=== PATIENT | female | born 1985 | race Caucasian/White ===

== ENCOUNTER 2022-07-23 23:17 | Emergency (ER) | payer OTHER ==
[~2022-07-23] VITALS: Ht 172.7 cm; Wt 117.9 kg
[2022-07-23] MEDS ORDERED: KETOROLAC TROMETHAMINE 60 MG INJ IM ONE (23:59)
[2022-07-24] MEDS ORDERED: KETOROLAC TROMETHAMINE 60 MG INJ IM ONE
--- NOTE | 2022-07-24 02:38 | NUR ---
Pt able to ambulate to restroom
[2022-07-24 02:59] LABS: *BILIRUBIN,URIN NEGATIVE (NEGATIVE); *BLOOD, URINE NEGATIVE (NEGATIVE); *CLARITY,URINE CLEAR (CLEAR); *COLOR,URINE YELLOW (YELLOW); *KETONES,URINE 1+ (NEGATIVE); *UROBILINOGEN,URINE 0.2 E.U./dl (NORMAL); LEUKOCYTE ESTERASE ,URINE NEGATIVE (NEGATIVE); NITRITE, URINE NEGATIVE (NEGATIVE); PH,URINE 5.5 (5.0-8.0); UGLUCOSE NEGATIVE (NEGATIVE)
[2022-07-24] MEDS ORDERED: ACETAMINOPHEN 325 MG TABLET ONE (03:09)
[2022-07-24 03:13] LABS: *AMPHETAMINE, URINE POSITIVE (NEGATIVE); *CANNABINOID, URINE NEGATIVE (NEGATIVE); *COCCAINE, URINE NEGATIVE (NEGATIVE); *OPIATE, URINE NEGATIVE (NEGATIVE); *PHENCYCLIDINE SCREEN,URINE NEGATIVE (NEGATIVE)
[2022-07-24] MEDS ORDERED: ACETAMINOPHEN 325 MG TABLET PO ONE (03:15)
[2022-07-24] MEDS ORDERED: NALO4SPR BNOSTRILS (05:28)
[2022-07-24] MEDS ORDERED: NAPR-1164 PO (05:28)
[2022-07-24 07:09] VITALS: BP 111/75
== END 2022-07-24 07:10 | disposition home or self-care (01) ==
LOC: ER 23:19
DX: T40.411A Poisoning by fentanyl or fentanyl analogs, accidental (unintentional), initial encounter (principal); T43.621A Poisoning by amphetamines, accidental (unintentional), initial encounter; R07.9 Chest pain, unspecified; Y92.039 Unspecified place in apartment as the place of occurrence of the external cause; F15.10 Other stimulant abuse, uncomplicated; F17.200 Nicotine dependence, unspecified, uncomplicated; Z88.1 Allergy status to other antibiotic agents; Z88.8 Allergy status to other drugs, medicaments and biological substances; Z98.1 Arthrodesis status
CPT/HCPCS: 99284; 71045; 36415; 96372; 80307; 81003; J1885; A4663